=== PATIENT | female | born 1955 | race Caucasian/White ===

== ENCOUNTER → 2017-01-11 | Outpatient (CLI) | payer OTHER ==
--- NOTE | ~2017-01-11 | CR58 ---
[facility] A Service of [facility] RADIOLOGY TEXT RESULTS PATIENT: ANUP SHARMA LOCATION: [facility] : 59 UNIT #: [id number] AGE: [address]: ESTEFANÍA Combs APRN SEX: F ORDER DR: [id number] [facility] [address] [place], [place] [address] [id number] O MR#: [id number] Acc #: [id number] NAME: ANUP SHARMA : 1955 SEX: F STUDY DATE/TIME: 01/11/2017 16:46 UNIT: [facility] ROOM: STUDY DESCRIPTION: CR Cervical Spine 2 or 3 Views Attending Physician: Joshua Sharp M.D. Referring Physician: Estefanía Welsh Aprn Ordering Physician: Estefanía Welsh Aprn Primary Care Physician: [facility] MEDICAL IMAGING REPORT This report is preliminary unless electronic signature is present EXAM Cervical spine series dated 01/11/2017 COMPARISON None. HISTORY Pain and swelling in the third digit. Pain in the neck posteriorly that radiates to both shoulders. FINDINGS 4 views of the cervical spine were obtained. There is calcification noted along the anterior longitudinal ligament at the level of C6-7. It could also represent a spur. No significant loss of vertebral body or intervertebral disc heights are seen. There is expected alignment. Loss of normal cervical curvature is seen. Visualized C1-2 and C7-T1 junctions are grossly unremarkable. No acute displaced fracture or subluxation is seen. Dictated by... Daniel Carson M.D. THIS IS AN ELECTRONICALLY VERIFIED REPORT Daniel Carson M.D. at 01/13/2017 3:04 PM CPR/mjs TD: 01/12/2017 10:59 JOB #: [id number] MEDICAL IMAGING REPORT Page 1 of 1 COPY
--- NOTE | ~2017-01-11 | CR141 ---
[facility] A Service of [facility] & [facility] RADIOLOGY TEXT RESULTS PATIENT: ANUP SHARMA LOCATION: [facility] : 59 UNIT #: [id number] AGE: [address]: ESTEFANÍA Combs APRN SEX: F ORDER DR: [id number] [facility] [address] [place], [place] [address] [id number] O MR#: [id number] Acc #: [id number] NAME: ANUP SHARMA : 1955 SEX: F STUDY DATE/TIME: 01/11/2017 17:00 UNIT: [facility] ROOM: STUDY DESCRIPTION: CR Hand Min 3 Views Lt Attending Physician: Estefanía Welsh Aprn Referring Physician: Estefanía Welsh Aprn Ordering Physician: Estefanía Welsh Aprn Primary Care Physician: [facility], [facility]. MEDICAL IMAGING REPORT This report is preliminary unless electronic signature is present EXAM Left hand 3 views 01/11/2017 1700 hours. HISTORY Technologist reports pain for 1 week with no known injury. Third digit pain and swelling. FINDINGS The middle finger is mildly flexed at the PIP joint on all 3 projections. No fracture, dislocation, radiopaque foreign body, or arthritic finding is noted. The wrist shows no obvious abnormality. IMPRESSION Negative left hand. The middle finger is slightly flexed at the PIP on all 3 views without etiology demonstrated. Dictated by... Hattie Silverman M.D. THIS IS AN ELECTRONICALLY VERIFIED REPORT Hattie Silverman M.D. at 01/13/2017 9:09 AM Jenny TD: 01/12/2017 14:27 JOB #: [id number] MEDICAL IMAGING REPORT Page 1 of 1 COPY
--- NOTE | ~2017-01-11 | CR142 ---
[facility] A Service of [facility] & [facility] RADIOLOGY TEXT RESULTS PATIENT: ANUP SHARMA LOCATION: [facility] : 59 UNIT #: [id number] AGE: [address]: ESTEFANÍA Combs APRN SEX: F ORDER DR: [id number] [facility] [address] [place], [place] [address] [id number] O MR#: [id number] Acc #: [id number] NAME: ANUP SHARMA : 1955 SEX: F STUDY DATE/TIME: 01/11/2017 17:02 UNIT: [facility] ROOM: STUDY DESCRIPTION: CR Hand Min 3 Views Rt Attending Physician: Estefanía Welsh Aprn Referring Physician: Estefanía Welsh Aprn Ordering Physician: Estefanía Welsh Aprn [facility] REPORT This report is preliminary unless electronic signature is present EXAM Right hand 3 views, 01/11/2017 17:02 p.m. HISTORY Pain for 1 week. No known injury. History sheet states third digit pain and swelling. FINDINGS No fracture, dislocation, or arthritic finding is noted. Radiocarpal alignment is normal. No soft tissue abnormalities are demonstrated. IMPRESSION Negative right hand. Dictated by... Hattie Silverman M.D. THIS IS AN ELECTRONICALLY VERIFIED REPORT Hattie Silverman M.D. at 01/13/2017 9:09 AM Eder TD: 01/12/2017 14:26 JOB #: [id number] MEDICAL IMAGING REPORT Page 1 of 1 COPY
== END | disposition home or self-care (01) ==
LOC: CRAD 16:17
DX: M54.2 Cervicalgia (principal); M79.642 Pain in left hand; M79.641 Pain in right hand
CPT/HCPCS: 72040; 73130

== ENCOUNTER → 2017-01-25 | Outpatient (CLI) | payer OTHER ==
--- NOTE | ~2017-01-25 | MR32 ---
[facility] A Service of [facility] & [facility] RADIOLOGY TEXT RESULTS PATIENT: ANUP SHARMA LOCATION: [facility] : 59 UNIT #: [id number] AGE: [address]: ESTEFANÍA Combs APRN SEX: F ORDER DR: [id number] [place] [address] [facility]. [place], [place] [address] [id number] O MR#: [id number] Acc #: [id number] NAME: ANUP SHARMA : 1955 SEX: F STUDY DATE/TIME: 01/25/2017 16:26 UNIT: [facility] ROOM: STUDY DESCRIPTION: MR Cervical Wo Contrast Attending Physician: Estefanía Welsh Aprn Referring Physician: Estefanía Welsh Aprn Ordering Physician: Estefanía Welsh Aprn Primary Care Physician: Estefanía Welsh Aprn MRI CENTER REPORT This report is preliminary unless electronic signature is present. EXAM Cervical spine MRI without. HISTORY Cervicalgia. History of fibromyalgia in [place] in 1995. Chronic pain in neck bilateral hands from fibromyalgia. New doctor ordered MRI for further assessment. No cancer history. No trauma history. COMMENT MRI of the cervical spine was performed without contrast using routine 1.5T imaging technique. There is a plain film for comparison from 01/11/2017. FINDINGS Sagittal alignment is normal. Intervertebral discs are mildly desiccated with minor endplate spondylosis, best appreciated on the plain films at C6-7. The cervical cord is normal in size and signal intensity and there is no Chiari-I malformation. At C2-3, no canal or foraminal impingement. At C3-4, minor posterior disc bulge without canal or foraminal impingement. At C4-5, mild left-side facet degenerative change. Mild posterior disc bulge. No canal stenosis or significant foraminal impingement. At C5-6, mild right-side facet degenerative change. Mild concentric disc bulge. No canal stenosis. Mild right foraminal narrowing. At C6-7, mild concentric disc bulge and some endplate spondylosis. No STS. [facility] A Service of [facility] & [facility] RADIOLOGY TEXT RESULTS PATIENT: ANUP SHARMA LOCATION: [facility] : 59 UNIT #: [id number] AGE: [address]: ESTEFANÍA Combs, REGULATORY AFFAIRS DIRECTOR SEX: F ORDER DR: canal stenosis. Mild foraminal narrowing bilaterally. At C7-T1, mild posterior disc bulge. No canal stenosis. There is asymmetric right-sided facet degenerative change and moderate right side foraminal narrowing. IMPRESSION There are some overall relatively mild multiple level cervical degenerative changes but there is no evidence for cervical canal stenosis. Please refer to the [id number] discussion of findings. Dictated by... Maggie Laughlin M.D. THIS IS AN ELECTRONICALLY VERIFIED REPORT Maggie Laughlin M.D. at 01/27/2017 3:48 PM LAUREL/jeremías TD: 01/27/2017 12:13 JOB #: [id number] MRI CENTER REPORT Page 1 of 1 COPY
== END | disposition home or self-care (01) ==
LOC: CMRI 15:49
DX: M54.2 Cervicalgia (principal); M47.892 Other spondylosis, cervical region; M50.821 Other cervical disc disorders at C4-C5 level; M50.822 Other cervical disc disorders at C5-C6 level; M50.823 Other cervical disc disorders at C6-C7 level
CPT/HCPCS: 72141